=== PATIENT | female | born 1995 | race African-American/Black ===

== ENCOUNTER 2019-08-29 19:26 | Emergency (ER) | payer OTHER ==
[~2019-08-29] VITALS: Ht 167.6 cm; Wt 59.0 kg
[2019-08-29 19:37] LABS: URINE BILIRUBIN NEGATIVE (Negative); URINE BLOOD NEGATIVE (Negative); URINE CLARITY CLOUDY; URINE COLOR YELLOW; URINE GLUCOSE-RANDOM* NEGATIVE (Negative); URINE KETONES NEGATIVE (Negative); URINE LEUKOCYTES-REFLEX 3+ (Negative); URINE NITRITE-REFLEX NEGATIVE (Negative); URINE PROTEIN (DIPSTICK) NEGATIVE (Negative)
[2019-08-29 20:07] LABS: BACTERIA-REFLEX >30 Many /HPF (None Seen); CASTS None Seen /LPF (None Seen); CRYSTALS None Seen /LPF (None Seen); SQUAMOUS >10 Many /LPF (0-3); URINE RBC None Seen /HPF (0-2)
[2019-08-29 20:13] LABS: HEMATOCRIT 38.7 % (37.0-47.0); HEMOGLOBIN 13.1 gm/dL (12.0-15.0); MCH 30.5 pg (26.0-34.0); MCHC 33.8 g/dL (28.0-37.0); MCV 90.2 fL (80.0-100.0); RBC 4.3 mil/uL (4.20-5.00); RDW 13.6 % (10.5-14.5); WBC 7.4 thou/uL (4.0-11.0)
[2019-08-29 20:21] LABS: CREATININE 0.6 mg/dL (0.6-1.0); POTASSIUM 3.7 mmol/L (3.5-5.1)
[2019-08-29 20:52] VITALS: BP 109/58
[2019-08-29] MEDS ORDERED: ONDANSETRON HCL4 M2 PO (21:18)
[2019-08-29] MEDS ORDERED: KEFLEX500 M1 PO (22:00)
== END 2019-08-29 22:04 | disposition home or self-care (01) ==
LOC: ER 19:26
PROVIDERS: Physician Assistant
DX: O21.0 Mild hyperemesis gravidarum (principal); O26.891 Other specified pregnancy related conditions, first trimester; R10.31 Right lower quadrant pain; Z3A.01 Less than 8 weeks gestation of pregnancy

== ENCOUNTER 2019-12-17 16:29 | Emergency (ER) | payer OTHER ==
[~2019-12-17] VITALS: Ht 167.6 cm; Wt 66.7 kg
[~2019-12-17 16:29] MED LIST: KEFLEX500 M1 PO; ONDANSETRON HCL4 M2 PO
[2019-12-17] MEDS ORDERED: ENBRACE HR SOF1 EACH PO (18:42)
[2019-12-17] MEDS ORDERED: TAMIFLU75 MG PO (18:57)
[2019-12-17 19:07] VITALS: BP 121/78
== END 2019-12-17 19:07 | disposition home or self-care (01) ==
LOC: ER 16:29
DX: O99.519 Diseases of the respiratory system complicating pregnancy, unspecified trimester (principal); J10.1 Influenza due to other identified influenza virus with other respiratory manifestations; Z3A.00 Weeks of gestation of pregnancy not specified